=== PATIENT | male | born 1965 | race Caucasian/White ===

== ENCOUNTER 2017-12-18 10:43 | Emergency (ER) ==
[2017-12-18 10:49] VITALS: BP 166/106; TEMP 98.2; BMI 32.5
--- NOTE | 2017-12-18 11:24 | DI ---
Exam: Three x-rays of the fourth digit (finger). Comparison: None available. Reason for exam: Pain after injury FINDINGS: No acute fracture or malalignment. The cortices are intact. The joint spaces are well ma intained. No unexplained calcific soft tissue density or radiopaque retained foreign body. Impression: No acute fracture or dislocation is seen in the left fourth finger.
--- NOTE | 2017-12-18 12:14 | ED.PDOC ---
General ED Provider: Dr. VANESSA HOWARD Chief Complaint: Finger Pain/Injury Stated Complaint: LEFT 4TH FINGER Time Seen by Physician: 10:44 Mode of Arrival: Walk-In Information Source: Patient Exam Limitations: No limitations Primary Care Provider: RHETT MCLEAN Nursing and Triage Documentation Reviewed and Agree: Yes Reviewed sepsis parameters & appropriate labs ordered?: Yes (SEEN WITH LYDIA AT ALL TIMES ) System Inflammatory Response Syndrome: Not Applicable Sepsis Protocol: For patient's 13 years and over: Temp is 96.8 and below OR 101 and greater Pulse >90 BPM Resp >20/minute Acutely Altered Mental Status Are patient's symptoms suggestive of a new infection, such as: -Pneumonia -Skin, Soft Tissue -Endocarditis -UTI -Bone, Joint Infection -Implantable Device -Acute Abdominal Infection -Wound Infection -Meningitis -Blood Stream Catheter Infection -Unknown System Inflammatory Response Syndrome: Not Applicable Musculoskeletal Complaint Exam - Hand/Wrist Complaint/Exam Location of Pain: Reports: Left, Digit #4 Mechanism of Injury: Reports: Trauma (2 WEEKS AGO NOW HAS PAIN SEE PHOTOS) Onset/Duration: 2 WEEKS Symptoms Are: Still present Initial Severity: Moderate Current Severity: Moderate Location: Reports: Discrete Character: Reports: Aching, Throbbing Alleviating: Reports: Rest Aggravating: Reports: Movement Associated Signs and Symptoms: Reports: Swelling (SEE PHOTOS). Denies: Redness , Bruising, Fever, Weakness, Numbness, Tingling Dominant Hand: Right Related Surgical History: Reports: None Hand/Wrist Findings: Present: Swelling Differential Diagnoses: Sprain, Strain Review of Systems - Review Of Systems Constitutional: Reports: No symptoms Eyes: Reports: No symptoms Ears, Nose, Mouth, Throat: Reports: No symptoms Respiratory: Reports: No symptoms Cardiac: Reports: No symptoms GI: Reports: No symptoms : Reports: No symptoms Musculoskeletal: Reports: Other (4TH FINGER PAIN ) Skin: Reports: No symptoms Neurological: Reports: No symptoms Endocrine: Reports: No symptoms Hematologic/Lymphatic: Reports: No symptoms All Other Systems: Reviewed and Negative Past Medical History - Past Medical History Previously Healthy: Yes Endocrine: Reports: None Cardiovascular: Reports: None Respiratory: Reports: None Hematological: Reports: None Gastrointestinal: Reports: None Genitourinary: Reports: None Neuro/Psych: Reports: None Musculoskeletal: Reports: None Cancer: Reports: None - Surgical History General Surgical History: Reports: None - Family History Family History: Reports: None - Social History Smoking Status: Former smoker Hx Substance Use: No Alcohol Screening: Occasionally Physical Exam - Physical Exam Appearance: Well-appearing, No pain distress, Well-nourished Eyes: STONE, EOMI, Conjunctiva clear ENT: Ears normal, Nose normal, Oropharynx normal Respiratory: Airway patent, Breath sounds clear, Breath sounds equal, Respirations nonlabored Cardiovascular: RRR, Pulses normal, No rub, No murmur GI/: Soft, Nontender, No masses, Bowel sounds normal, No Organomegaly Musculoskeletal: Limited ROM ( DUE TO EDEMA PULP LEFT 4TH FINGER SEE PHOTOS) Skin: Warm, Dry, Normal color Neurological: Sensation intact, Motor intact, Reflexes intact, Cranial nerves intact, Alert, Oriented Psychiatric: Affect appropriate, Mood appropriate Interpretation - Radiology Interpretation Radiology Interpretation By: Radiologist Radiology Results: No acute changes Critical Care Note - Critical Care Note Total Time (mins): 0 Course - Course Orders, Labs, Meds: Orders Category Date Time Status FINGER(S), LEFT MIN 2V Stat RADS 12/18/17 10:56 Completed Vital Signs: Temp Pulse Resp BP Pulse Ox 12/18/17 10:44 98.2 F 95 H 16 166/106 H 96 Departure - Departure Time of Disposition: 12:14 Disposition: HOME SELF-CARE Discharge Problem: Injury of finger, Pain in finger Traumatic hematoma of finger Qualifiers: Encounter type: initial encounter Qualified Code(s): S60.00XA - Contusion of unspecified finger without damage to nail, initial encounter Instructions: Finger Sprain (ED), Jammed Finger (ED), Hematoma (ED) Condition: Good Pt referred to PMD for follow-up: Yes IPMP verified?: Yes Additional Instructions: Please call your Family Physician as soon as possible to schedule a follow-up appointment. Allergies/Adverse Reactions: Allergies Penicillins Adverse Reaction (Verified 12/18/17 10:49) Home Medications: Ambulatory Orders Albuterol Sulfate [Proair Hfa] 2 puff IH Q4H PRN 12/18/17 Aspirin [Aspirin EC] 81 mg PO DAILY 12/18/17 Fluticasone/Salmeterol 250/50 [Advair 250-50 Diskus] 1 puff IH BID 12/18/17 Losartan/Hydrochlorothiazide [Losartan-Hctz 100-25 mg Tab] 1 each PO DAILY 12/18 Nitroglycerin [Nitrostat] 0.4 mg SL Q5MIN X 3 DOSES PRN 12/18/17 Pantoprazole Sodium 40 mg PO DAILY 12/18/17 Venlafaxine HCl [Effexor] 75 mg PO DAILY 12/18/17
== END 2017-12-18 12:22 | disposition home or self-care (01) ==
LOC: ED 10:43
DX: S60.00XA Contusion of unspecified finger without damage to nail, initial encounter (principal); W23.0XXA Caught, crushed, jammed, or pinched between moving objects, initial encounter
CPT/HCPCS: 87070; 87186; 99283

== ENCOUNTER 2018-07-20 07:34 | Day surgery (SDC) ==
[2018-07-20 07:53] VITALS: TEMP 98
[2018-07-20] MEDS ORDERED: VERSED ONE (09:21)
[2018-07-20] MEDS ORDERED: DIPRIVAN 20 ML VIAL IVP ONE (09:21)
[2018-07-20] MEDS ORDERED: SUBLIMAZE ONE (09:21)
--- NOTE | 2018-07-21 09:04 | OP ---
INDICATIONS FOR PROCEDURE: 51 year old gentleman presents for endoscopy exam. He complains of globus sensation. He does have a history of reflux disease and heart burn but he has been placed on PPI therapy and those symptoms have resolved. The globus sensation has been present for 5 years. He also has occasional dysphagia or the sensation of dysphagia. MEDICATIONS: SEE ANESTHESIA NOTES. PROCEDURE: ENDOSCOPY. TURKMEN DILATIONS. REPORT: The risks, benefits, alternatives and limitations were discussed in detail with the patient. Informed consent was obtained. After adequate sedation was achieved, the video endoscope was introduced in the posterior pharynx and esophagus under direct vision and easily advanced down to the second portion of the duodenum. I then slowly withdrew. The duodenal mucosa appeared unremarkable as did the duodenal bulb. The antrum body is relatively unremarkable. The scope was retroflexed to look at the cardia and fundus which was unremarkable. The scope was anteflexed and withdrawn back through the esophagus. The GE junction was at the top of the gastric folds which was at the diaphragmatic hiatus. The esophagus itself appeared unremarkable. I advanced the scope back down the gastric lumen. I placed the guidewire. Over the guidewire I easily advanced 54 Sin[place] dilator. The patient tolerated the procedure well with stable vital signs and pulse oximetry throughout. IMPRESSION: 1. Normal endoscopy exam 2. Successful passive dilation of the esophagus RECOMMENDATIONS: 1. From a GI stand point I recommend strict reflux precautions and I have gone over these with him 2. We will see him back in the office as needed CC: Dr. Mendez AGUIRRE
[2018-07-22 12:32] VITALS: BP 121/78
== END 2018-07-20 10:10 | disposition home or self-care (01) ==
LOC: SURG 07:34
PROVIDERS: ATTEND Internal Medicine Gastroenterology
DX: F45.8 Other somatoform disorders (principal); R13.10 Dysphagia, unspecified